=== PATIENT | female | born 1945 | race Caucasian/White ===

== ENCOUNTER → 2017-12-04 19:51 | Outpatient (CLI) | payer SELFPAY ==
[2009-05-28 08:55] VITALS: BMI 29.4
[2017-12-04 19:21] LABS: CHOL - HDL RATIO 2.6 ratio (2.3-4.1); LDL-HDL RATIO 0.8 ratio (1.5-3.5)
== END | disposition home or self-care (01) ==
LOC: D.LABREF 18:24
PROVIDERS: Internal Medicine Cardiovascular Disease
DX: I10 Essential (primary) hypertension (principal)

== ENCOUNTER → 2018-04-20 12:35 | Outpatient (CLI) | payer MEDICARE, BC ==
[2009-05-28 08:55] VITALS: BMI 29.4
== END | disposition home or self-care (01) ==
LOC: D.CT 12:35
DX: R22.2 Localized swelling, mass and lump, trunk (principal)

== ENCOUNTER → 2018-04-23 12:49 | Outpatient (CLI) | payer MEDICARE, BC ==
[2009-05-28 08:55] VITALS: BMI 29.4
== END | disposition home or self-care (01) ==
LOC: D.CT 12:49
DX: J32.9 Chronic sinusitis, unspecified (principal)

== ENCOUNTER → 2018-04-27 09:30 | Outpatient (CLI) | payer MEDICARE, BC ==
[2009-05-28 08:55] VITALS: BMI 29.4
== END | disposition home or self-care (01) ==
LOC: D.HCCARDIO 09:30
DX: R06.09 Other forms of dyspnea (principal)

== ENCOUNTER → 2018-12-04 17:22 | Outpatient (CLI) | payer MEDICARE, BC ==
[2009-05-28 08:55] VITALS: BMI 29.4
[2018-12-04 18:35] LABS: CHOL - HDL RATIO 2.1 ratio (2.3-4.1); LDL-HDL RATIO 0.5 ratio (1.5-3.5)
== END | disposition home or self-care (01) ==
LOC: D.LABREF 17:22
PROVIDERS: ATTEND Nurse Practitioner
DX: E78.5 Hyperlipidemia, unspecified (principal)

== ENCOUNTER → 2019-10-22 08:21 | Outpatient (CLI) | payer MEDICARE, BC ==
[2009-05-28 08:55] VITALS: BMI 29.4
--- NOTE | 2019-10-24 15:26 | EC ---
PATIENT:JARETH SANCHEZ DATE OF SERVICE: 10/22/19 SEX: F MEDICAL RECORD: [id number] DATE OF : 49 LOCATION:D.COUNT INCLUDES THE [facility] AGE OF PATIENT: 73 ADMISSION DATE: 10/22/19 REFERRING PHYSICIAN: INTERPRETING PHYSICIAN: DAVE DIGGS MD ECHOCARDIOGRAM REPORT ECHO CHARGES 4 ECHO COMPLETE Date: 10/22/19 CLINICAL DIAGNOSIS: DYSPNEA ECHOCARDIOGRAPHIC MEASUREMENTS (adult normal given) AC root (d.<3.7cm) 2.2 cm LV Septum d (<1.2 cm> 0.8 cm Valve Excursion 1.1 cm LV Septum (systole) 0.9 cm Left Atria (s.<4.0cm> 3.4 cm LVPW d(<1.2cm) 0.8 cm RV (d.<2.3cm) 2.8 cm LVPW (sytole) 0.9 cm LV diastole(<5.6CM) 4.3 cm MV E-F(>70mm/sec) cm LV systole 3.6 cm LVOT Diameter 1.4 cm MV exc.(>10mm) cm Est.ejection fraction (50-75%) % DOPPLER: LVIT cm/sec A 58 cm/sec E 42 cm/sec LA cm/sec RVSP 22.5 mmHg LVOT 72 cm/sec AOP1/2T m/s Asc. Ao 128 cm/sec RVOT 46 cm/sec RA cm/sec PA 77 cm/sec AV Gradient Peak 6.5 mmHg AV Mean 3.7 mmHg AV Area 0.8 cm MV Gradient Peak 2.8 mmHg MV Mean 1.2 mmHg MV Area cm COMMENTS: Feather Shaper: Max [facility] Cash Applications Clerk: 3 Dr. Driscoll TAPE# PACS Pericardial Effusion N DATE OF SERVICE: Adequate 2D, color flow imaging, spectral Doppler and M-mode. No LVH. LV internal dimensions are normal. Wall motion is normal. EF is greater than or equal to 55%. Aortic valve is tricuspid. No evidence of stenosis by Doppler interrogation. Left atrium is normal at 3.4 cm. Mitral valve shows no prolapse. Trace MR. Right-sided chambers are grossly normal. Trace TR. ECHOCARDIOGRAM REPORT [id number] JARETH SANCHEZ TRANSINT:[id number] Voice Confirmation ID: [id number] DOCUMENT ID: [id number] DAVE DIGGS MD at 1526 CC: [id number] DICTATION DATE: 10/22/19 1600 CONCRETE BATCHER: 10/22/19 [id number] DEP CLI 10/22/19 [id number] [place] [address]
== END | disposition home or self-care (01) ==
LOC: D.ECHO 08:21
PROVIDERS: ATTEND Family Medicine
DX: R06.09 Other forms of dyspnea (principal)

== ENCOUNTER → 2019-11-07 08:23 | Outpatient (CLI) | payer MEDICARE, BC ==
[2009-05-28 08:55] VITALS: BMI 29.4
== END | disposition home or self-care (01) ==
LOC: D.HCCARDIO 08:23
PROVIDERS: ATTEND Internal Medicine Cardiovascular Disease
DX: R07.9 Chest pain, unspecified (principal)

== ENCOUNTER → 2020-07-30 08:40 | Outpatient (CLI) | payer MEDICARE, BC ==
[2009-05-28 08:55] VITALS: BMI 29.4
== END | disposition home or self-care (01) ==
LOC: D.US 08:40
PROVIDERS: ATTEND Family Medicine
DX: R74.8 Abnormal levels of other serum enzymes (principal)